=== PATIENT | female | born 1930 | race Caucasian/White ===

== ENCOUNTER → 2016-12-27 | Outpatient (CLI) | payer BC ==
[~2016-12-27] MED LIST: ACET-1256 PO; AMT50 PO; APR25 PO; ASPI81TA28 PO; CHOL100027 PO; CYM20 PO; GLIP10TA9 PO; INSU1INJ SC; LEVO75TA5 PO; LISI-461 PO; LSX20 PO; MULT-190 PO; NRN100 PO; SIMV40TA4 PO; TPRSR25 PO
--- NOTE | 2016-12-27 13:22 | DIAGNOSTIC IMAGING REPORT ---
RIGHT KNEE 4 OR MORE CLINICAL HISTORY: Right knee pain COMPARISON: 03/02/2015 DISCUSSION: The bones are osteopenic. There are osteoarthritic changes present with mild medial joint compartment narrowing. There are dorsal patellar spurs. No acute fractures are evident. Skin chris are visualized in the medial soft tissues. There are vascular calcifications present. IMPRESSION: Osteopenia. Degenerative changes. No acute fractures. Electronically signed by: Varinder Ervin M.D. 12/27/2016 1:20 PM Dictated Date/Time: 12/27/2016 1:18 PM
== END | disposition home or self-care (01) ==
LOC: C.RDSM 10:45
PROVIDERS: ATTEND Family Medicine
DX: M25.569 Pain in unspecified knee (principal); M85.861 Other specified disorders of bone density and structure, right lower leg

== ENCOUNTER 2020-07-20 16:58 | Inpatient (IN) ==
[2020-07-20] MEDS ORDERED: ACETAMINOPHEN 1,000 MG/100 ML VIAL IV STA (17:34)
--- NOTE | 2020-07-20 18:04 | XRay Report ---
XR chest 1V portable HISTORY: SEPSIS COMPARISON: Chest 07/10/2013. FINDINGS: No pneumothorax. The heart is enlarged. There are poststernotomy changes. There is diffuse interstitial and vascular thickening which has progressed in the interval. This is consistent with mi ld pulmonary edema. No pleural effusions. No focal lung consolidations to suggest pneumonia. IMPRESSION: Cardiomegaly with interval progression of the mild interstitial pulmonary edema. ACT 112: Negative or not required by law. Electronically signed by: Julio Pastrana M.D. 07/20/2020 6:02 PM
[2020-07-20 18:15] LABS: Basophils # (auto) 0.02 K/uL (0-0.2); Basophils % (auto) 0.2 %; Eosinophils # (auto) 0.15 K/uL (0-0.5); Eosinophils % (auto) 1.3 %; Hematocrit (blood only) 37.8 % (37-47); Hemoglobin 12.1 g/dL (12.0-16.0); Immature Granulocytes # (auto) 0.02 K/uL (0.00-0.02); Immature Granulocytes % (auto) 0.2 %; Lymphocytes # (auto) 1.55 K/uL (1.2-3.4); Lymphocytes % (auto) 13.5 %; Mean Corpuscular Hemoglobin 30.7 pg (25-34); Mean Corpuscular Volume 95.9 fL (80-100); Mean Platelet Volume 12.4 fL (7.4-10.4); Monocytes # (auto) 1.36 K/uL (0.11-0.59); Monocytes % (auto) 11.9 %; Neutrophils # (auto) 8.36 K/uL (1.4-6.5); Neutrophils % (auto) 72.9 %; Platelet Count 187 K/uL (130-400); RDW Coefficient of Variation 14.3 % (11.5-14.5); RDW Standard Deviation 50.6 fL (36.4-46.3); Red Blood Count 3.94 M/uL (4.2-5.4); White Blood Count 11.46 K/uL (4.8-10.8)
--- NOTE | 2020-07-20 18:16 | Emergency Department Note ---
Impression & Plan Bilateral cellulitis of lower leg, CKD (chronic kidney disease), Elevated erythrocyte sedimentation rate, Elevated C-reactive protein ED Provider Note NAME: EDE KONG AGE: 89 SEX: F ARRIVES VIA: Walk-In INFORMANT: Patient, ED PROVIDER(S): Rex Paredes MD CHIEF COMPLAINT: Cellulitis PLAN: Disposition: Admit MEDICAL DECISION MAKING: The patient is a pleasant 89-year-old woman with a past medical history of diabetes, hypertension, hyperlipidemia, peripheral edema who presents emergency department for evaluation and admission for bilateral lower extremity cellulitis which has evolving over the past month where she reports pain developing in June but noticing redness approximately a week ago that has worsened in seen by orthopedics, Dr. Rubio Chacko today referred to the emergency department for admission. Patient denies any fevers, chills, cough, congestion, nausea, vomiting, diarrhea, urinary symptoms. She does report feeling generally fatigued. She denies chest pain or shortness of breath. On arrival patient is no acute distress, afebrile stable vital signs. On exam the patient has 3+ bilateral lower extremity pitting edema with erythema of the lower legs bilaterally with warmth, tenderness and scattered bullae that are Nikolsky negative. I did review with the patient concern for her medical comorbidities and what is a severe cellulitis of her extremities and recommend admission. She is agreeable with this plan. WBC 11.4, nonspecific. H/H within normal limits. Platelets within normal limits. Chemistry without acidosis. Creatinine 1.5 approximate 2 prior range of values. Lactate 1.2, within normal limits. LFTs unremarkable. ESR and CRP are elevated at 70 and 5, respectively. Procalcitonin 0.06, not elevated. Plain films of bilateral lower legs without evidence of osseous involvement. Ultrasound of bilateral lower extremities negative for DVT. Given the patient's severe lower extremity cellulitis patient was treated with broad-spectrum antibiotics (Zosyn and daptomycin) given her comorbidities. Case was discussed with Dr. Monroe, [facility] hospitalist, who will evaluate the patient for admission. Triage Nursing notes reviewed and agree them. Additional history obtained from Prior medical records reviewed Vital Signs: reviewed and remarkable for no significant abnormalities Differential diagnosis: Cellulitis, abscess, MRSA infection, DVT, necrotizing fasciitis, dermatitis, drug eruption, allergic reaction, as well as other pathologies. ER treatment provided: See below. Diagnostics interpreted by me: ECG: Sinus rhythm, 62 bpm, PACs, right bundle branch block, no overt ST elevation or depression, QTC 444, QRS 130. Cardiac Monitoring: An order for continuous cardiac monitoring was placed and demonstrated NSR, 63 bpm, PACs. Laboratory studies: See below Imaging studies: XR chest 1V portable HISTORY: SEPSIS COMPARISON: Chest 07/10/2013. FINDINGS: No pneumothorax. The heart is enlarged. There are poststernotomy changes. There is diffuse interstitial and vascular thickening which has progressed in the interval. This is consistent with mild pulmonary edema. No pleural effusions. No focal lung consolidations to suggest pneumonia. IMPRESSION: Cardiomegaly with interval progression of the mild interstitial pulmonary edema. - BILATERAL LOWER EXTREMITY VENOUS DOPPLER HISTORY: Bilateral lower extremity pain swelling COMPARISON STUDY: None. FINDINGS: There is normal compressibility, flow, and augmentation within the bilateral lower extremity deep venous systems. IMPRESSION: No DVT within the right or left lower extremity. - XR tibia fibula RT 2V, XR tibia fibula LT 2V CLINICAL HISTORY: Bilateral lower leg pain, swelling, cellulitis, eval osseous involveme COMPARISON STUDY: None. FINDINGS: Diffuse subcutaneous edema seen throughout the bilateral lower legs. There are multiple surgical clips seen within the right lower leg medially. No fracture or dislocation within the bilateral lower legs. No evidence for osteomyelitis or cortical destruction. The bones are osteopenic. IMPRESSION: Diffuse subcutaneous edema within the bilateral lower legs. No underlying bony abnormality. Consultation(s): Case was discussed with Dr. Monroe, [facility] hospitalist, who will evaluate the patient for admission. HPI: The patient is a pleasant 89-year-old woman with a past medical history of diabetes, hypertension, hyperlipidemia, peripheral edema who presents emergency department for evaluation and admission for bilateral lower extremity cellulitis which has evolving over the past month where she reports pain developing in June but noticing redness approximately a week ago that has worsened in severity seen by orthopedics, Dr. Rubio Chacko today referred to the emergency department for admission. Patient denies any fevers, chills, cough, congestion, nausea, vomiting, diarrhea, urinary symptoms. She does report feeling generally fatigued. She denies chest pain or shortness of breath. ROS: See above HPI for pertinent positives & negatives. A total of 10 systems reviewed and were otherwise negative. PAST MEDICAL HISTORY:See Below PAST SURGICAL HISTORY:See Below FAMILY HISTORY:See Below SOCIAL HISTORY:See Below HOME MEDICATIONS:See Below ALLERGIES:See Below VITALS:See Below PHYSICAL EXAMINATION: GENERAL: Awake, alert, fatigued-appearing, in no distress, BMI 49.5. HENT: Normocephalic, atraumatic. Oropharynx unremarkable. EYES: Normal conjunctiva. Sclera non-icteric. NECK: Supple. No nuchal rigidity. FROM. No JVD. RESPIRATORY: Clear to auscultation. CARDIAC: Regular rate, normal rhythm. Extremities warm and well perfused. Pulses equal. ABDOMEN: Soft, non-distended. No tenderness to palpation. No rebound or guarding. No masses. RECTAL: Deferred. MUSCULOSKELETAL: Chest examination reveals no tenderness. The back is symmetrical on inspection without obvious abnormality. There is no CVA te nderness to palpation. No joint edema. LOWER EXTREMITIES: 3+ bilateral lower extremity pitting edema with erythema of the lower legs bilaterally with warmth, tenderness and scattered bullae that are Nikolsky negative. NEURO: Normal sensorium. No sensory or motor deficits noted. SKIN: No rash or jaundice noted. ED COURSE: Critical Care: I have personally spent greater than 35 minutes of critical care time in the direct management of this patient. This includes bedside care, interpretation of diagnostic studies, and testing, discussion with consultants, patient, and family members, and other required patient management activities. This 35 minutes is in excess of all separately billable procedures. Rex Paredes MD Past Med/Surg History Medical History CKD (chronic kidney disease) Hyperlipidemia Hypertension Hypothyroidism (acquired) Mixed conductive and sensorineural hearing loss Type 2 diabetes mellitus Surgical History History of cholecystectomy History of hysterectomy Hx of CABG S/P epidural steroid injection Social History Smoking Status: Never smoker Hx Alcohol Use: Yes Hx Substance Use: No Preferred Language: Welsh Communication Ability: Effective [employer] Required: No Beliefs That Will Affect Care: None Current Living Situation: Spouse Feels Safe at Home: Yes Safety Concerns: Feels Safe At This Time Allergies Allergies Allergy/AdvReac Type Severity Reaction Status Date / Time oxycodone AdvReac Unknown Dizziness/N Verified 09/03/15 10:59 ausea Home Meds Home Medications Medication Instructions Recorded Confirmed aspirin [Aspirin Low Dose] 81 mg PO DAILY 07/20/20 07/20/20 furosemide 20 - 40 mg PO UD PRN 07/20/20 07/20/20 gabapentin 300 mg PO TID 07/20/20 07/20/20 hydralazine 25 mg PO BID 07/20/20 07/20/20 insulin NPH and regular human 0 unit SUBCUT UD 07/20/20 07/20/20 [Humulin 70/30 U-100 Insulin] levothyroxine 75 mcg PO DAILYBB 07/20/20 07/20/20 losartan 50 mg PO DAILY 07/20/20 07/20/20 omeprazole 20 mg PO DAILY 07/20/20 07/20/20 simvastatin 40 mg PO DAILY 07/20/20 07/20/20 vit C,M-Dr-lyijm-lutein-zeaxan 1 tab PO BID 07/20/20 07/20/20 [PreserVision AREDS-2] metoprolol succinate 25 mg See Rx Instructions PO BID tab 07/21/20 tablet,extended release 24 hr Results & Data (ED) Vital Signs Vital Signs - 24 hr 07/20/20 18:45 07/20/20 20:11 07/20/20 20:13 Temperature Temperature Source Pulse Rate [Apical] 80 64 Pulse Rhythm [Apical] Regular Pulse Strength [Apical] Normal Respiratory Rate 16 22 Respiratory Depth Normal Blood Pressure [Left Arm] 168/77 H 106/44 L Blood Pressure Mean [Left Arm] 107 64 Pulse Oximetry 95 87 L 96 Oxygen Delivery Method Room Air Room Air Nasal Cannula Oxygen Flow Rate 3 07/20/20 20:15 Temperature 36.8 C Temperature Source Oral Pulse Rate [Apical] Pulse Rhythm [Apical] Pulse Strength [Apical] Respiratory Rate Respiratory Depth Blood Pressure [Left Arm] Blood Pressure Mean [Left Arm] Pulse Oximetry Oxygen Delivery Method Oxygen Flow Rate Laboratory Data Attestation: I reviewed the patient's lab results. Result diagrams: 07/20/20 18:06 07/21/20 03:24 Lab Results 07/20/20 07/20/20 07/20/20 Range/Units 18:06 18:06 18:06 WBC 11.46 H (4.8-10.8) K/uL RBC 3.94 L (4.2-5.4) M/uL Hgb 12.1 (12.0-16.0) g/dL Hct 37.8 (37-47) % MCV 95.9 (80-100) fL MCH 30.7 (25-34) pg MCHC 32.0 (32-36) g/dL RDW Std Deviation 50.6 H (36.4-46.3) fL RDW Coeff of Linda 14.3 (11.5-14.5) % Plt Count 187 (130-400) K/uL MPV 12.4 H (7.4-10.4) fL Immature Gran % (Auto) 0.2 % Neut % (Auto) 72.9 % Lymph % (Auto) 13.5 % Colbert % (Auto) 11.9 % Eos % (Auto) 1.3 % Baso % (Auto) 0.2 % Neut # (Auto) 8.36 H (1.4-6.5) K/uL Lymph # (Auto) 1.55 (1.2-3.4) K/uL Colbert # (Auto) 1.36 H (0.11-0.59) K/uL Eos # (Auto) 0.15 (0-0.5) K/uL Baso # (Auto) 0.02 (0-0.2) K/uL Immature Gran # (Auto) 0.02 (0.00-0.02) K/uL ESR (0-21) mm/hr PT 11.2 (9.0-12.0) Seconds INR 1.1 (0.9-1.1) APTT 29.4 (21.0-31.0) Seconds PTT Ratio 1.1 Sodium (136-145) mmol/L Potassium (3.5-5.1) mmol/L Chloride (98-107) mmol/L Carbon Dioxide (21-32) mmol/L Anion Gap (3-11) BUN (7-18) mg/dl Creatinine (0.6-1.2) mg/dl Est Cr Clr Drug Dosing Est GFR ( Amer) Est GFR (Non-Af Amer) BUN/Creatinine Ratio (10-20) Glucose (70-99) mg/dl Lactate (0.4-2.0) mmol/L Calcium (8.5-10.1) mg/dl Phosphorus (2.5-4.9) mg/dl Magnesium (1.8-2.4) mg/dl Total Bilirubin (0.2-1) mg/dl AST (15-37) U/L ALT (12-78) U/L Alkaline Phosphatase (45-117) U/L C-Reactive Protein (0-0.29) mg/dl NT-Pro-B Natriuret Pep (0-1800) pg/ml Total Protein (6.4-8.2) gm/dl Albumin (3.4-5.0) gm/dl Globulin (2.5-4.0) gm/dl Albumin/Globulin Ratio (0.9-2) Procalcitonin 0.06 (0-0.5) ng/ml 07/20/20 07/20/20 07/20/20 Range/Units 18:06 18:06 18:06 WBC (4.8-10.8) K/uL RBC (4.2-5.4) M/uL Hgb (12.0-16.0) g/dL Hct (37-47) % MCV (80-100) fL MCH (25-34) pg MCHC (32-36) g/dL RDW Std Deviation (36.4-46.3) fL RDW Coeff of Linda (11.5-14.5) % Plt Count (130-400) K/uL MPV (7.4-10.4) fL Immature Gran % (Auto) % Neut % (Auto) % Lymph % (Auto) % Colbert % (Auto) % Eos % (Auto) % Baso % (Auto) % Neut # (Auto) (1.4-6.5) K/uL Lymph # (Auto) (1.2-3.4) K/uL Colbert # (Auto) (0.11-0.59) K/uL Eos # (Auto) (0-0.5) K/uL Baso # (Auto) (0-0.2) K/uL Immature Gran # (Auto) (0.00-0.02) K/uL ESR 70 H (0-21) mm/hr PT (9.0-12.0) Seconds INR (0.9-1.1) APTT (21.0-31.0) Seconds PTT Ratio Sodium 142 (136-145) mmol/L Potassium 4.8 (3.5-5.1) mmol/L Chloride 110 H (98-107) mmol/L Carbon Dioxide 28 (21-32) mmol/L Anion Gap 4.0 (3-11) BUN 55 H (7-18) mg/dl Creatinine 1.58 H (0.6-1.2) mg/dl Est Cr Clr Drug Dosing Not Reportable Est GFR ( Amer) 33.3 Est GFR (Non-Af Amer) 28.7 BUN/Creatinine Ratio 34.9 H (10-20) Glucose 124 H (70-99) mg/dl Lactate 1.2 (0.4-2.0) mmol/L Calcium 9.8 (8.5-10.1) mg/dl Phosphorus 3.2 (2.5-4.9) mg/dl Magnesium 2.0 (1.8-2.4) mg/dl Total Bilirubin 0.5 (0.2-1) mg/dl AST 11 L (15-37) U/L ALT 13 (12-78) U/L Alkaline Phosphatase 108 (45-117) U/L C-Reactive Protein 5.13 H (0-0.29) mg/dl NT-Pro-B Natriuret Pep 1743 (0-1800) pg/ml Total Protein 7.2 (6.4-8.2) gm/dl Albumin 2.9 L (3.4-5.0) gm/dl Globulin 4.3 H (2.5-4.0) gm/dl Albumin/Globulin Ratio 0.7 L (0.9-2) Procalcitonin (0-0.5) ng/ml Administered Medications Hydrocodone Bitart/Acetaminophen (Hydrocodone/Acetamophen 5/325mg Tab) 1 tab PO Q4H PRN PRN Reason: Moderate Pain Stop: 08/03/20 22:54 Last Admin: 07/21/20 05:59 Dose: 1 tab Documented by: [id number] Aspirin (Aspirin 81 Mg Ectab) 81 mg PO DAILY [facility] Stop: 08/20/20 08:59 Last Admin: 07/21/20 09:46 Dose: 81 mg Documented by: [id number] Gabapentin (Gabapentin 300 Mg Cap) 300 mg PO TID EDMUND Stop: 08/19/20 22:54 Last Admin: 07/21/20 14:28 Dose: 300 mg Documented by: [id number] Admin: 07/21/20 09:47 Dose: 300 mg Documented by: [id number] Admin: 07/21/20 00:01 Dose: 300 mg Documented by: [id number] Heparin Sodium (Porcine) (Heparin Sod 5,000 Unit/0.5 Ml Vial) 7,500 units SQ Q8 EDMUND Stop: 08/19/20 22:54 Last Admin: 07/21/20 14:29 Dose: 7,500 units Documented by: [id number] Cosigned by: [id number] Admin: 07/21/20 06:01 Dose: 7,500 units Documented by: [id number] Cosigned by: [id number] Admin: 07/21/20 00:06 Dose: 7,500 units Documented by: [id number] Cosigned by: [id number] Hydralazine HCl (Hydralazine Hcl 25 Mg Tab) 25 mg PO BID EDMUND Stop: 08/19/20 22:54 Last Admin: 07/21/20 09:47 Dose: 25 mg Documented by: [id number] Admin: 07/21/20 00:01 Dose: 25 mg Documented by: [id number] Furosemide 40 mg/ Syringe 4 mls @ 4 mls/min IV QAM EDMUND Stop: 08/20/20 08:59 Last Admin: 07/21/20 09:46 Dose: 4 mls/min Documented by: [id number] Insulin Aspart (Insulin Aspart 100 Units/Ml 3 Ml Pen) 0 units SC ACHS EDMUND Stop: 08/19/20 22:54 Last Admin: 07/21/20 13:11 Dose: 7 units Documented by: [id number] Cosigned by: [id number] Admin: 07/21/20 09:52 Dose: 7 units Documented by: [id number] Cosigned by: [id number] Admin: 07/21/20 00:07 Dose: 1 units Documented by: [id number] Cosigned by: [id number] Levothyroxine Sodium (Levothyroxine Sodium 75 Mcg Tablet) 75 mcg PO DAILYBB EDMUND Stop: 08/20/20 06:29 Last Admin: 07/21/20 05:56 Dose: 75 mcg Documented by: [id number] Metoprolol Succinate (Metoprolol Succ 25mg Ext Rel Tab) 25 mg PO QAM EDMUND Stop: 10/15/20 08:59 Last Admin: 07/21/20 11:18 Dose: 25 mg Documented by: [id number] Miconazole Nitrate (Miconazole Nitrate Powder 43 Gm) 1 appln EXT BID PRN PRN Reason: Affected Skin Folds Stop: 08/20/20 12:29 Last Admin: 07/21/20 14:28 Dose: 1 appln Documented by: [id number] Multivitamins/Minerals (Cerovite Adv Formula Tab) 1 tab PO BID EDMUND Stop: 08/19/20 23:14 Last Admin: 07/21/20 09:46 Dose: 1 tab Documented by: [id number] Admin: 07/21/20 00:37 Dose: 1 tab Documented by: [id number] Pantoprazole Sodium (Pantoprazole 40 Mg Tab) 40 mg PO DAILY EDMUND Stop: 08/20/20 08:59 Last Admin: 07/21/20 09:46 Dose: 40 mg Documented by: [id number] Discontinued Medications Acetaminophen (Ofirmev) 1,000 mg in 100 mls @ 400 mls/hr IV NOW STA Stop: 07/20/20 17:48 Last Infusion: 07/20/20 19:07 Dose: 0 mls/hr Documented by: [id number] Admin: 07/20/20 18:09 Dose: 400 mls/hr Documented by: [id number] Piperacillin Sod/Tazobactam Sod (Zosyn) 4.5 gm in 120 mls @ 240 mls/hr IV NOW ONE Stop: 07/20/20 20:19 Last Infusion: 07/20/20 20:40 Dose: 0 mls/hr Documented by: [id number] Admin: 07/20/20 20:10 Dose: 240 mls/hr Documented by: [id number] Daptomycin 325 mg/ Syringe 6.5 mls @ 3.25 mls/min IV NOW ONE; Protocol Stop: 07/20/20 20:33 Last Admin: 07/20/20 20:43 Dose: 3.25 mls/min Documented by: [id number] Piperacillin Sod/Tazobactam (Sod 4.5 gm/ Dextrose) 120 mls @ 30 mls/hr IV Q8H EDMUND Stop: 07/28/20 03:59 Last Infusion: 07/21/20 07:16 Dose: 0 mls/hr Documented by: [id number] Admin: 07/21/20 03:25 Dose: 30 mls/hr Documented by: [id number] Furosemide 40 mg/ Syringe 4 mls @ 4 mls/min IV NOW STA Stop: 07/21/20 03:03 Last Admin: 07/21/20 03:25 Dose: 4 mls/min Documented by: [id number] Perflutren Lipid Microsphere (Perflutren Lipid Microsphere (Definity)) 2 ml IV ONCE ONE Stop: 07/21/20 07:57 Last Admin: 07/21/20 07:56 Dose: 2 ml Documented by: [id number] Pneumococcal Polyvalent Vaccine (Pneumococcal Polysaccharides 25 Mcg/0.5 Ml Vial/Syr) 25 mcg IM .ONCE ONE Stop: 07/21/20 00:35 Last Admin: 07/21/20 13:08 Dose: Not Given Documented by: [id number] Blood Pressure Blood Pressure Findings: Normal blood pressure Blood Pressure Disposition: further management by hospitalist Discharge Plan Visit Data Chief Complaint: Foot Injury/Pain Stated Complaint: FOOT PAIN ED Provider: Rex Paredes Discharge Problem: Bilateral cellulitis of lower leg, CKD (chronic kidney disease), Elevated e rythrocyte sedimentation rate, Elevated C-reactive protein Patient Disposition: Admitted As Inpatient Discharge Instructions Interventions: ED Discharge Assessment Last Done: 07/20/20 22:25 Discharge Problem: CKD (chronic kidney disease) Qualifiers: Chronic kidney disease stage: unspecified stage Qualified Code(s): N18.9 - Chronic kidney disease, unspecified
[2020-07-20 18:26] LABS: INR 1.1 (0.9-1.1); Partial Thromboplastin Ratio 1.1; Partial Thromboplastin Time 29.4 Seconds (21.0-31.0); Prothrombin Time 11.2 Seconds (9.0-12.0)
[2020-07-20 18:34] LABS: Alanine Aminotransferase 13 U/L (12-78); Albumin Level 2.9 gm/dl (3.4-5.0); Aspartate Aminotransferase 11 U/L (15-37); BUN Creatinine Ratio 34.9 (10-20); Blood Urea Nitrogen 55 mg/dl (7-18); Calcium 9.8 mg/dl (8.5-10.1); Carbon Dioxide 28 mmol/L (21-32); Chloride 110 mmol/L (98-107); Est GFR (African American) 33.3; Est GFR (Non-African American) 28.7; Glucose 124 mg/dl (70-99); Phosphorus 3.2 mg/dl (2.5-4.9); Potassium 4.8 mmol/L (3.5-5.1); Sodium 142 mmol/L (136-145)
[2020-07-20 18:37] LABS: Albumin Globulin Ratio 0.7 (0.9-2); Alkaline Phosphatase 108 U/L (45-117); Bilirubin,Total 0.5 mg/dl (0.2-1); C Reactive Protein 5.13 mg/dl (0-0.29); Globulin 4.3 gm/dl (2.5-4.0); NT Pro B Type Natriuretic Pept 1743 pg/ml (0-1800); Total Protein 7.2 gm/dl (6.4-8.2)
--- NOTE | 2020-07-20 18:57 | XRay Report ---
XR tibia fibula RT 2V, XR tibia fibula LT 2V CLINICAL HISTORY: Bilateral lower leg pain, swelling, cellulitis, eval osseous involveme COMPARISON STUDY: None. FINDINGS: Diffuse subcutaneous edema seen throughout the bilateral lower legs. There are multiple tyler gical clips seen within the right lower leg medially. No fracture or dislocation within the bilateral lower legs. No evidence for osteomyelitis or cortical destruction. The bones are osteopenic. IMPRESSION: Diffuse subcutaneous edema within the bilateral lower legs. No underlying bony abnormali ty. ACT 112: Negative or not required by law. Electronically signed by: Julio Pastrana M.D. 07/20/2020 6:55 PM
--- NOTE | 2020-07-20 19:46 | Ultrasound Report ---
BILATERAL LOWER EXTREMITY VENOUS DOPPLER HISTORY: Bilateral lower extremity pain swelling COMPARISON STUDY: None. FINDINGS: There is normal compressibility, flow, and augmentation within the bilateral lower extremit y deep venous systems. IMPRESSION: No DVT within the right or left lower extremity. ACT 112: Negative or not required by law. Electronically signed by: Julio Pastrana M.D. 07/20/2020 7:44 PM
[2020-07-20] MEDS ORDERED: PIPERACILLIN/TAZOBACTAM 4.5 GM/120 ML BAG IV ONE (19:50)
[2020-07-20] MEDS ORDERED: PIPERACILL/TAZOBAC CONSULT ACTIVE PRN ×2 (19:50→22:55)
[2020-07-20] MEDS ORDERED: DAPTOMYCIN CONSULT ACTIVE PRN ×2 (20:32→22:55)
[2020-07-20] MEDS ORDERED: DAPTOmycin 325 MG in SYRINGE 0 ML IV ONE (20:32)
--- NOTE | 2020-07-20 21:36 | History & Physical Report ---
Date of Service July 20, 2020 Assessment & Plan (1) Acute exacerbation of CHF (congestive heart failure): The patient will be admitted to telemetry for serial cardiac enzymes, serial EKG's, cardiac rhythm monitoring and a 2-D echocardiogram with Dopplers. Place on Lasix 40 mg IV daily, first dose now. Chest x-ray with pulmonary edema, and lower extremities with severe edema. Present on Admission?: Yes (2) Hypertension: See above Present on Admission?: Yes (3) Bilateral cellulitis of lower leg: Consult wound care. Continue daptomycin IV and Zosyn IV begun in the ED. Patient does have heel calluses bilaterally, right worse than left, and will need to have reassessment of shoe wear and offloading of pressure to prevent progression to heel osteomyelitis. She would also likely benefit from Unna boots in the outpatient setting. Present on Admission?: Yes (4) Hyperlipidemia: Continue simvastatin 40 mg daily Present on Admission?: Yes (5) Type 2 diabetes mellitus: Unknown dosing of Humulin 70/30 insulin. Placed on Accu-Cheks before meals and at bedtime with NovoLog coverage for scale Present on Admission?: Yes (6) CKD (chronic kidney disease): Creatinine 1.58, around her baseline. Hold losartan. Follow serial laboratories while diuresing Present on Admission?: Yes (7) Hypothyroidism (acquired): Continue levothyroxine sodium 75 mcg daily Present on Admission?: Yes History of Present Illness Chief Complaint: The patient is referred to the emergency department by Dr. Manrique with worsening bilateral lower extremity edema and cellulitis. Primary Care Provider: Lizzette Cooper MD The patient is an 89-year-old female with past medical history including hypertension, hyperlipidemia, diabetes mellitus, CKD, hearing loss, GERD, parathyroidectomy and hypothyroidism. She reports having lower extremity swelling for several weeks, and noted redness developing 1 to 2 weeks ago. She was seen by Dr. Manrique, orthopedic surgery, who referred her to the ED for assessment for possible admission. Her main complaint is that of severe pain along the bottom of her feet bilaterally. Allergies Allergy/AdvReac Type Severity Reaction Status Date / Time oxycodone AdvReac Unknown Dizziness/N Verified 09/03/15 10:59 ausea Home Medications Home Medications Medication Instructions Recorded Confirmed Type aspirin [Aspirin Low Dose] 81 mg PO DAILY 07/20/20 07/20/20 History furosemide 20 - 40 mg PO UD PRN 07/20/20 07/20/20 History gabapentin 300 mg PO TID 07/20/20 07/20/20 History hydralazine 25 mg PO BID 07/20/20 07/20/20 History insulin NPH and regular human 0 unit SUBCUT UD 07/20/20 07/20/20 History [Humulin 70/30 U-100 Insulin] levothyroxine 75 mcg PO DAILYBB 07/20/20 07/20/20 History losartan 50 mg PO DAILY 07/20/20 07/20/20 History metoprolol succinate 0 mg PO UD 07/20/20 07/20/20 History omeprazole 20 mg PO DAILY 07/20/20 07/20/20 History simvastatin 40 mg PO DAILY 07/20/20 07/20/20 History vit C,R-Rz-amkuw-lutein-zeaxan 1 tab PO BID 07/20/20 07/20/20 History [PreserVision AREDS-2] Past Med/Surg History Medical History CKD (chronic kidney disease) Hyperlipidemia Hypertension Mixed conductive and sensorineural hearing loss Type 2 diabetes mellitus Surgical History History of cholecystectomy History of hysterectomy Hx of CABG S/P epidural steroid injection Social History Smoking Status: Never smoker Hx Alcohol Use: Yes Hx Substance Use: No Preferred Language: Turkish Communication Ability: Effective Window Framer Required: No Beliefs That Will Affect Care: None Current Living Situation: Spouse Feels Safe at Home: Yes Safety Concerns: Feels Safe At This Time Review of Systems Review of Systems: The patient denies chest pain, palpitations, shortness of breath, dyspnea on exertion, cough, sore throat, fevers, chills, sweats, fatigue, nausea, vomiting, diarrhea , constipation, abdominal pain, pelvic pain, blood in urine or stool, dysuria, urinary frequency or urgency, lightheadedness, dizziness, headache, memory loss, loss of consciousness, imbalance, focal weakness, numbness or tingling in arms, generalized arthralgias or myalgias, back or neck pain, or night sweats. The review of systems is otherwise negative other than for that already noted above, and at least 10 systems have been reviewed. Physical Exam Physical Exam: The patient is awake, alert and oriented 3, normocephalic and atraumatic, lying in bed and in no acute distress. HEENT--PERRL, EOMI, mucous membranes and oropharynx normal. Neck--supple. No JVD. No bruits. Heart--normal S1 and S2. No murmurs, rubs or gallops. Lungs--clear bilaterally, no respiratory distress, no accessory muscle use. Abdomen--normal bowel sounds and soft. Nontender. Nondistended. Morbidly obese Extremities--no cyanosis or clubbing. 3+ bilateral pretibial pitting edema. Dermatologic--multiple vacuoles present, left greater than right, with several draining. Callus on right heel approximately 3 cm in diameter, with surrounding erythema. Callus on left heel proximately 1 cm in diameter with surrounding erythema. Neurologic--cranial nerves II through XII grossly intact. Rheumatologic--limited exam Psychiatric--normal affect. Results & Data Results & Data ([facility]) Vital Signs (Past 12 Hours) Vital Signs Temp Pulse Resp BP BP Pulse Ox 07/20/20 20:15 98.2 F 07/20/20 20:13 96 07/20/20 20:11 64 22 106/44 L 87 L 07/20/20 18:45 80 16 168/77 H 95 07/20/20 16:59 99.1 F 20 170/74 H Laboratory Results Laboratory Results WBC 11.46 K/uL (4.8-10.8) H 07/20/20 18:06 RBC 3.94 M/uL (4.2-5.4) L 07/20/20 18:06 Hgb 12.1 g/dL (12.0-16.0) 07/20/20 18:06 Hct 37.8 % (37-47) 07/20/20 18:06 MCV 95.9 fL (80-100) 07/20/20 18:06 MCH 30.7 pg (25-34) 07/20/20 18:06 MCHC 32.0 g/dL (32-36) 07/20/20 18:06 RDW Std Deviation 50.6 fL (36.4-46.3) H 07/20/20 18:06 RDW Coeff of Linda 14.3 % (11.5-14.5) 07/20/20 18:06 Plt Count 187 K/uL (130-400) 07/20/20 18:06 MPV 12.4 fL (7.4-10.4) H 07/20/20 18:06 Immature Gran % (Auto) 0.2 % 07/20/20 18:06 Neut % (Auto) 72.9 % 07/20/20 18:06 Lymph % (Auto) 13.5 % 07/20/20 18:06 [place]fl[place] % (Auto) 11.9 % 07/20/20 18:06 Eos % (Auto) 1.3 % 07/20/20 18:06 Baso % (Auto) 0.2 % 07/20/20 18:06 Neut # (Auto) 8.36 K/uL (1.4-6.5) H 07/20/20 18:06 Lymph # (Auto) 1.55 K/uL (1.2-3.4) 07/20/20 18:06 Mifflin # (Auto) 1.36 K/uL (0.11-0.59) H 07/20/20 18:06 Eos # (Auto) 0.15 K/uL (0-0.5) 07/20/20 18:06 Baso # (Auto) 0.02 K/uL (0-0.2) 07/20/20 18:06 Immature Gran # (Auto) 0.02 K/uL (0.00-0.02) 07/20/20 18:06 ESR 70 mm/hr (0-21) H 07/20/20 18:06 PT 11.2 Seconds (9.0-12.0) 07/20/20 18:06 INR 1.1 (0.9-1.1) 07/20/20 18:06 APTT 29.4 Seconds (21.0-31.0) 07/20/20 18:06 PTT Ratio 1.1 07/20/20 18:06 Sodium 142 mmol/L (136-145) 07/20/20 18:06 Potassium 4.8 mmol/L (3.5-5.1) 07/20/20 18:06 Chloride 110 mmol/L (98-107) H 07/20/20 18:06 Carbon Dioxide 28 mmol/L (21-32) 07/20/20 18:06 Anion Gap 4.0 (3-11) 07/20/20 18:06 BUN 55 mg/dl (7-18) H 07/20/20 18:06 Creatinine 1.58 mg/dl (0.6-1.2) H 07/20/20 18:06 Est Cr Clr Drug Dosing Not Reportable 07/20/20 18:06 Est GFR ( Amer) 33.3 07/20/20 18:06 Est GFR (Non-Af Amer) 28.7 07/20/20 18:06 BUN/Creatinine Ratio 34.9 (10-20) H 07/20/20 18:06 Glucose 124 mg/dl (70-99) H 07/20/20 18:06 POC Glucose 160 mg/dl (70-99) H 07/20/20 23:59 Lactate 1.2 mmol/L (0.4-2.0) 07/20/20 18:06 Calcium 9.8 mg/dl (8.5-10.1) 07/20/20 18:06 Phosphorus 3.2 mg/dl (2.5-4.9) 07/20/20 18:06 Magnesium 2.0 mg/dl (1.8-2.4) 07/20/20 18:06 Total Bilirubin 0.5 mg/dl (0.2-1) 07/20/20 18:06 AST 11 U/L (15-37) L 07/20/20 18:06 ALT 13 U/L (12-78) 07/20/20 18:06 Alkaline Phosphatase 108 U/L (45-117) 07/20/20 18:06 C-Reactive Protein 5.13 mg/dl (0-0.29) H 07/20/20 18:06 NT-Pro-B Natriuret Pep 1743 pg/ml (0-1800) 07/20/20 18:06 Total Protein 7.2 gm/dl (6.4-8.2) 07/20/20 18:06 Albumin 2.9 gm/dl (3.4-5.0) L 07/20/20 18:06 Globulin 4.3 gm/dl (2.5-4.0) H 07/20/20 18:06 Albumin/Globulin Ratio 0.7 (0.9-2) L 07/20/20 18:06 Procalcitonin 0.06 ng/ml (0-0.5) 07/20/20 18:06 Diagnostic Findings [place], [place] [phone] XRay Report Patient: EDE KONG Date: 07/20/20 MR#: [id number]: [address] Acct ID:[id number]: Date: 1930[facility] Zip: [place] [address] Age: 89Location: ED Sex: FRoom/Bed: Att Phy:Diagnosis: FOOT PAIN Leigh Phy: Lizzette Cooper M.D.Service Date: 07/20/20 Fam Phy:Interpreting Phy: Julio Pastrana MD Admit Phy: Ordering Phy: Rex Paredes M.D. cc: ~ XR tibia fibula RT 2V, XR tibia fibula LT 2V CLINICAL HISTORY: Bilateral lower leg pain, swelling, cellulitis, eval osseous involveme COMPARISON STUDY: None. FINDINGS: Diffuse subcutaneous edema seen throughout the bilateral lower legs. There are multiple surgical clips seen within the right lower leg medially. No fracture or dislocation within the bilateral lower legs. No evidence for osteomyelitis or cortical destruction. The bones are osteopenic. IMPRESSION: Diffuse subcutaneous edema within the bilateral lower legs. No underlying bony abnormality. ACT 112: Negative or not required by law. Electronically signed by: Julio Pastrana M.D. 07/20/2020 6:55 PM Dictated: 07/20/20 1759 Transcribed: 07/20/20 1801 [place], [place] [phone] Ultrasound Report Patient: EDE KONG Date: 07/20/20 MR#: [id number]: [address] Acct ID:[id number]: Date: 1930[facility] Zip: [place] [address] Age: 89Location: ED Sex: FRoom/Bed: Att Phy:Diagnosis: FOOT PAIN Leigh Phy: Lizzette Cooper M.D.Service Date: 07/20/20 [facility] Phy:Interpreting Phy: Julio Pastrana MD Admit Phy: Ordering Phy: Rex Paredes M.D. cc: ~ BILATERAL LOWER EXTREMITY VENOUS DOPPLER HISTORY: Bilateral lower extremity pain swelling COMPARISON STUDY: None. FINDINGS: There is normal compressibility, flow, and augmentation within the bilateral lower extremity deep venous systems. IMPRESSION: No DVT within the right or left lower extremity. ACT 112: Negative or not required by law. Electronically signed by: Julio Pastrana M.D. 07/20/2020 7:44 PM Dictated: 07/20/201943 Transcribed: 07/20/201943 [place], [place] [phone] XRay Report Patient: EDE KONG Date: 07/20/20 MR#: [id number]: [address] Acct ID:[id number]: Date: 1930[facility] Zip: [place] [address] Age: 89Location: ED Sex: FRoom/Bed: Att Phy:Diagnosis: FOOT PAIN Leigh Phy: Lizzette Cooper M.D.Service Date: 07/20/20 [facility] Phy:Interpreting Phy: Julio Pastrana MD Admit Phy: Ordering Phy: Rex Paredes M.D. cc: ~ XR chest 1V portable HISTORY: SEPSIS COMPARISON: Chest 07/10/2013. FINDINGS: No pneumothorax. The heart is enlarged. There are poststernotomy changes. There is diffuse interstitial and vascular thickening which has progressed in the interval. This is consistent with mild pulmonary edema. No pleural effusions. No focal lung consolidations to suggest pneumonia. IMPRESSION: Cardiomegaly with interval progression of the mild interstitial pulmonary edema. ACT 112: Negative or not required by law. Electronically signed by: Julio Pastrana M.D. 07/20/2020 6:02 PM Dictated: 07/20/201800 Transcribed: 07/20/201800 Code Status & VTE Plan Code Status Full code VTE Prophylaxis Plan VTE Prophylaxis will be ordered: Yes PG Care Time/CCT Total # of Minutes Spent Total Time Spent with Patient: Total time spent is greater than 50% in coordination of care (as documented) at patient's floor/unit and/or counseling patient: Coding Level of Care Code 17884 Initial Inpt Care Lvl 3 Diagnoses Acute exacerbation of CHF (congestive heart failure) I50.9 Hypertension I10 Bilateral cellulitis of lower leg L03.116; L03.115 Hyperlipidemia E78.5 Type 2 diabetes mellitus E11.9 CKD (chronic kidney disease) N18.9 Chronic kidney disease stage: unspecified stage Hypothyroidism (acquired) E03.9 (1) CKD (chronic kidney disease) Chronic kidney disease stage: unspecified stage Qualified Code(s): N18.9 - Chronic kidney disease, unspecified
[2020-07-20] MEDS ORDERED: GLUCOSE 40% GEL 15 GM TUBE PO PRN (22:55)
[2020-07-20] MEDS ORDERED: ALUMINUM/MAGNESIUM SUSP 30 ML UDC PO PRN (22:55)
[2020-07-20] MEDS ORDERED: DEXTROSE 50% 50 ML SYRINGE IV PRN (22:55)
[2020-07-20] MEDS ORDERED: GLUCOSE 10 TABS/TUBE PO PRN (22:55)
[2020-07-20] MEDS ORDERED: GLUCAGON FOR INJ 1 MG VIAL SQ PRN (22:55)
[2020-07-20] MEDS ORDERED: ACETAMINOPHEN 325 MG TAB PO PRN (22:55)
[2020-07-20] MEDS ORDERED: MAGNESIUM HYDROXIDE SUSP 30 ML UDC PO PRN (22:55)
[2020-07-20] MEDS ORDERED: ONDANSETRON INJ 2 MG/ML 2 ML VIAL IV PRN (22:55)
[2020-07-20] MEDS ORDERED: CARBOHYDRATES FOR HYPOGLYCEMIA PO PRN (22:55)
[2020-07-21] MEDS: GABAPENTIN 300 MG CAP PO SCH ×4 (00:01→21:20)
[2020-07-21] MEDS: HEPARIN SOD 5,000 UNIT/0.5 ML VIAL SQ SCH ×4 (00:06→21:24)
[2020-07-21] MEDS: INSULIN ASPART 100 UNITS/ML 3 ML PEN SC SCH ×5 (00:07→21:23)
[2020-07-21] MEDS ORDERED: PNEUMOCOCCAL ADMINISTRATION CHARGE ONE (00:34)
[2020-07-21] MEDS ORDERED: PNEUMOCOCCAL POLYSACCHARIDES 25 MCG/0.5 ML VIAL/SYR IM ONE (00:34)
[2020-07-21] MEDS: CEROVITE ADV FORMULA TAB PO SCH ×3 (00:37→21:20)
[2020-07-21] MEDS ORDERED: FUROSEMIDE 40 MG in SYRINGE 0 ML IV STA (03:02)
[2020-07-21] MEDS ORDERED: PIPERACILLIN/TAZOBACTAM 4.5 GM in DEXTROSE 5% 100 ML IV SCH (04:00)
[2020-07-21 04:13] LABS: Appearance Urine Cloudy (Clear); Bacteria Urine Automated 4+ (Negative); Bilirubin Urine Negative (Negative); Blood Urine Negative (Negative); Color Urine Yellow; Epithelial Cell Urine Auto >30 /lpf (0-5); Glucose Urine UA Negative (Negative); Ketones Urine Negative (Negative); Leukocyte Esterase Urine Trace (Negative); Nitrite Urine Negative (Negative); Protein Urine Negative (Negative); RBC Urine Automated 0-4 /hpf (0-4); Specific Gravity Urine 1.015 (1.000-1.030); Urobilinogen Urine Negative (Negative); pH Urine 8.5 (4.5-7.5)
[2020-07-21 04:28] LABS: Albumin Level 2.5 gm/dl (3.4-5.0); BUN Creatinine Ratio 32.8 (10-20); Calcium 9.3 mg/dl (8.5-10.1); Creatinine Clr Calc Pharmacy 30.7 ml/min; Est GFR (African American) 34.1; Est GFR (Non-African American) 29.4; Potassium 4.7 mmol/L (3.5-5.1)
[2020-07-21 04:31] LABS: Triple Phosphate Crystal Urine Present (None Prsent)
[2020-07-21 04:33] LABS: Phosphorus 3.1 mg/dl (2.5-4.9); Troponin I 0.015 ng/ml (0-0.045)
[2020-07-21] MEDS: LEVOTHYROXINE SODIUM 75 MCG TABLET PO SCH (05:56)
[2020-07-21 05:57] LABS: Estimated Average Glucose 97 mg/dl
[2020-07-21] MEDS: HYDROCODONE/ACETAMOPHEN 5/325MG TAB PO PRN (05:59)
[2020-07-21] MEDS ORDERED: PERFLUTREN LIPID MICROSPHERE (DEFINITY) IV ONE (07:56)
[2020-07-21] MEDS ORDERED: SIMVASTATIN 40 MG TAB PO SCH (09:00)
[2020-07-21] MEDS: FUROSEMIDE 40 MG in SYRINGE 0 ML IV SCH (09:46)
[2020-07-21] MEDS: ASPIRIN 81 MG ECTAB PO SCH (09:46)
[2020-07-21] MEDS: PANTOprazole 40 MG TAB PO SCH (09:46)
[2020-07-21] MEDS: METOPROLOL SUCC 25MG EXT REL TAB PO SCH ×2 (11:18→21:20)
--- NOTE | 2020-07-21 11:50 | XCELERA ---
[id number] \\[id number]_[id number]}___[id number]
--- NOTE | 2020-07-21 13:42 | Medical Student Progress Note ---
Date of Service July 21, 2020 Assessment & Plan (1) Venous stasis dermatitis: Pt denies any constitutional symptoms suggestive of cellulitis without the presence of tachycardia, fever, high WBC, and constant, advesive tenderness to lower extremity rash indicates. Pt has a history of CHF and obesity with limited mobility suggests venous stasis dermatitis. Pt will be given lower leg compression to relieve stasis as tolerated. Zosyn will be stopped and pt will be monitored for worsening pain symptoms and constitutional symptoms suggestive of infection until discharge. Present on Admission?: Yes (2) Acute exacerbation of CHF (congestive heart failure): Pt's chest CT scan showed an enlarged heart with pulmonary edema suggestive of an acute exacerbation of CHF. Additionally minor rales were noted on physical exam bilaterally. Overall, the pt hasn't noticed dyspnea except when in the shower. Pt will continue to be monitored for worsening CHF exacerbation symptoms of dyspnea, pedal edema, chest pain. Consider a cardiology consult if pt becomes symptomatic of an acute CHF exacerbation. Admission and Anticipated Discharge Date Admission Date: July 20, 2020 Supervising Attestation I personally examined the patient and verified all lopez points of history and exa m, discussed case, and agree with decision making with Zuleima MACDONALD. feeling ok. feet not hurting too much. denies sob but notes that she normally doesn't wear O2. on directed questioning does not to dyspnea whne she showers - this happens pretty regularly. otherwise denies dyspnea. vitals noted nad heent nc at mmm lungs faint rales best heard base L othewrise lungs clear. b/l LE chronic venous stasis changes nontender no exudate equal b/l acute on chronic HFpEF - new O2 requirement, CXR, exam findings all suggest at least a mild CHF exac - lasix, follow clinically follow Cr venous stasis edema / pain - while she does have a mild CHF flare, appears that her LE edema is far more from chronic venous stasis. does not appear cellulitic at this time - will hold abx and follow closely. mobilization, compression (if she'll allow), education CKD4 - not a lot of baseline creatinine values to follow but appears this is probably in her range. follow w diuresis. morbid obesity w BMI ~49 - likely contributes to venous stasis DVT proph - heparin SQ otherwise as above Subjective Pt is a 89 y/o female with a history of CHF, type 2 diabetes, and CKD that came into to the ED yesterday (07/20/20) for bilateral redness and swelling of the lower legs. Pt has had progressively worsening pain at the bottom of her feet starting from the last two weeks of June. Pain was mild at first but now is so bad that it has interfered with her sleep. On Monday (07/17/20), pt called Dr. Crocker about her lower leg pain which resulted in a prescription for an unknown pain medication which the patient only took half of. The pain did subside from the medication on Monday (07/18/20) but the patient woke up on Monday (07/19/20) and felt more pain during the day. Yesterday (07/20/20), the patient had a visit with orthopedics for her bilateral foot pain. The pt was sent to the ED for fear of bilateral cellulitis. Pt was given Zosyn and given a chest X-ray, tibia/fibular X-ray, lower extremity venous Doppler flow, echocardiogram, and blood and urine culture. Chest X-ray found mild cardiomegaly and diffuse interstitial and vascular thickening suggestive of mild pulmonary edema.Tibia/fibula x-ray and venous Doppler flow was not remarkable. Echocardiogram found borderline concentric left ventricular hypertrophy with normal systolic function (EF = 60- 65%), moderately dilated left atrium, and mild mitral regurgitation. Blood and urine cultures are pending. Pt describes the foot pain as sharp when lying down but dissipates with movement. Pt describes the pain as worse at night but almost non-existent during the day. Pt had no pain on admission. Pt says the pain was a 6/10 at 6 AM today and she was given Tramadol which reduced her pain to a 2/10. Review of Systems Constitutional: Denies fever, chills, night sweats Eyes: Notes macular degeneration of right eye. No acute changes in vision. Ear, Nose, Mouth, Throat: Conductive and sensorineural hearing loss in right ear. Respiratory: Denies shortness of breath today. Notes shortness of breath when taking showers. Cardiovascular: Additional Comments: Denies chest pain, palpitations Gastrointestinal: No constipation or diarrhea, passes stool every other day, no changes in consistency Genitourinary: No pain with urination, no changes in urine color Musculoskeletal: Bilateral foot pain 2/10 today. Integumentary: No recent rashes or skin changes Neurologic: Denies numbness Psychiatric: Denies depression; has good and bad days, denies anxiety Physical Exam Constitutional: In no acute distress Eyes: PERRLA bilaterally. Normal visual fonseca. No nystagmus Respiratory: Minor rales on auscultation of posterior lung fonseca bilaterally Cardiovascular: RRR with no murmurs, clicks, rubs, or gallops. No carotid bruitis. Capillary refill normal Gastrointestinal (Abdomen): normal bowel sounds, soft, nontender, no hepatosplenomegaly Musculoskeletal: Bilateral foot pain localized to the heel. Minor pain with palpation to area of erythema and blistering in the lower legs bilaterally. Skin: Erythematous, dispersed vesicular lesion with an erythematous base located bilaterally at the lower legs that runs circumferentially around the extent of the lower leg. Extends roughly an inch above the medial and lateral malleous and an inch below the tibial tuberosity bilaterally. Well defined borders. No evidence of pus. Clear fluid noted in remaining vesicles/bullae. Some minor erosions noted. Neurologic: Brachioradialis, biceps, triceps, patellar, and Achilles reflexes 1+ bilaterally. Essential tremor in hands bilaterally at rest. Psychiatric: A+Ox3, euthymic affect Lymphatic: 1+ pedal edema Results & Data ([facility]) Vital Signs (Past 12 Hours) Vital Signs Temp Pulse Resp BP Pulse Ox 07/21/20 11:17 61 07/21/20 10:52 212 H 109/60 07/21/20 08:17 36.4 C L 178 H 20 145/51 H 97
[2020-07-21] MEDS: MICONAZOLE NITRATE POWDER 43 GM EXT PRN (14:28)
--- NOTE | 2020-07-21 15:09 | Electrocardiogram Report ---
Test Reason : Blood Pressure : / mmHG Vent. Rate : 062 BPM Atrial Rate : 062 BPM P-R Int : 150 ms QRS Dur : 130 ms QT Int : 438 ms P-R-T Axes : 072 098 052 degrees QTc Int : 444 ms Sinus rhythm with Premature atrial complexes Right bundle branch block Abnormal ECG When compared with ECG of 09-JUL-2013 17:07, Borderline criteria for Inferior infarct are no longer Present Nonspecific T wave abnormality no longer evident in Inferior leads Nonspecific T wave abnormality, worse in Lateral leads Confirmed by Sarath Burns ([id number]) on 07/21/2020 3:08:46 PM Referred By: Rm Manrique Confirmed By:Sarath Burns
--- NOTE | 2020-07-21 15:15 | Electrocardiogram Report ---
Test Reason : Blood Pressure : / mmHG Vent. Rate : 057 BPM Atrial Rate : 057 BPM P-R Int : 152 ms QRS Dur : 132 ms QT Int : 448 ms P-R-T Axes : 091 099 061 degrees QTc Int : 436 ms Sinus bradycardia Right bundle branch block Possible Lateral infarct , age undetermined Abnormal ECG When compared with ECG of 20-JUL-2020 17:57, (unconfirmed) Premature atrial complexes are no longer Present Confirmed by Sarath Burns ([id number]) on 07/21/2020 3:15:07 PM Referred By: Rm Manrique Confirmed By:Sarath Burns
--- NOTE | 2020-07-21 19:13 | Billing Data ---
Date of Service July 21, 2020 Coding Level of Care Code 93585 Subseq Hosp Care Lvl 3
[2020-07-21] MEDS ORDERED: DAPTOmycin 325 MG in SYRINGE 0 ML IV SCH (21:00)
[2020-07-22] MEDS: HYDROCODONE/ACETAMOPHEN 5/325MG TAB PO PRN ×2 (00:44→14:55)
[2020-07-22 05:05] LABS: Basophils # (auto) 0.03 K/uL (0-0.2); Basophils % (auto) 0.4 %; Eosinophils % (auto) 2.6 %; Hematocrit (blood only) 34.7 % (37-47); Hemoglobin 10.3 g/dL (12.0-16.0); Immature Granulocytes # (auto) 0.02 K/uL (0.00-0.02); Immature Granulocytes % (auto) 0.3 %; Lymphocytes # (auto) 2.11 K/uL (1.2-3.4); Lymphocytes % (auto) 27.8 %; Mean Corpuscular Hemoglobin 28.9 pg (25-34); Mean Corpuscular Hgb Conc 29.7 g/dL (32-36); Mean Corpuscular Volume 97.5 fL (80-100); Mean Platelet Volume 12.3 fL (7.4-10.4); Monocytes # (auto) 0.91 K/uL (0.11-0.59); Neutrophils # (auto) 4.31 K/uL (1.4-6.5); Neutrophils % (auto) 56.9 %; Platelet Count 166 K/uL (130-400); RDW Coefficient of Variation 14.1 % (11.5-14.5); RDW Standard Deviation 50.4 fL (36.4-46.3); Red Blood Count 3.56 M/uL (4.2-5.4); White Blood Count 7.58 K/uL (4.8-10.8)
[2020-07-22] MEDS: LEVOTHYROXINE SODIUM 75 MCG TABLET PO SCH (06:09)
[2020-07-22] MEDS: HEPARIN SOD 5,000 UNIT/0.5 ML VIAL SQ SCH ×3 (06:09→20:20)
[2020-07-22 06:11] LABS: BUN Creatinine Ratio 30.1 (10-20); Calcium 9.4 mg/dl (8.5-10.1); Creatinine Clr Calc Pharmacy 29.7 ml/min; Est GFR (African American) 32.8; Est GFR (Non-African American) 28.3; Potassium 4.5 mmol/L (3.5-5.1)
[2020-07-22] MEDS: FUROSEMIDE 40 MG in SYRINGE 0 ML IV SCH (09:20)
[2020-07-22] MEDS: MICONAZOLE NITRATE POWDER 43 GM EXT PRN (09:20)
[2020-07-22] MEDS: ASPIRIN 81 MG ECTAB PO SCH (09:25)
[2020-07-22] MEDS: GABAPENTIN 300 MG CAP PO SCH ×3 (09:25→20:15)
[2020-07-22] MEDS: PANTOprazole 40 MG TAB PO SCH (09:25)
[2020-07-22] MEDS: METOPROLOL SUCC 25MG EXT REL TAB PO SCH ×3 (09:25→20:14)
[2020-07-22] MEDS: CEROVITE ADV FORMULA TAB PO SCH (09:26)
[2020-07-22] MEDS: INSULIN ASPART 100 UNITS/ML 3 ML PEN SC SCH ×4 (09:27→20:25)
[2020-07-22] MEDS ORDERED: PHARMACY GLYCEMIC MGMT CONSULT PRN (12:42)
[2020-07-22] MEDS ORDERED: INSULIN GLARGINE SOLOSTAR 100 UNITS/ML 3 ML PEN SC ONE (13:15)
--- NOTE | 2020-07-22 13:15 | Medical Student Progress Note ---
Date of Service July 22, 2020 Assessment & Plan (1) Venous stasis dermatitis: Pt has tolerated compression stockings and it seems to be improving overall swelling, pain, and dermatitis associated with venous stasis. Continue compression stockings as tolerated and monitor for changes in wound appearance. PT and ambulation will help prevent much of the venous stasis that caused the current venous stasis dermatitis. Present on Admission?: Yes (2) Ambulatory dysfunction: When pt was checked in the afternoon, pt struggled to get out of bed and stand up with the assistance of her walker. Pt's weakness presents a fall risk. Physical therapy was agreed upon and physical therapy will meet with pt tomorrow to get her approval and establish course of treatment. Confirm with pt tomorrow prior to meeting with physical therapy that she will work with physical therapy. Admission and Anticipated Discharge Date Admission Date: July 20, 2020 Supervising Attestation I personally examined the patient and verified all lopez points of history and exam, discussed case, and agree with decision making with Zuleima MACDONALD. R heel hurts. breathing fine. weak. understands need for rehab. upset that we can't do more therapy here - actually in a little bit of disbelief that as a doctor i cannot order her to have more therapy here inpt - discussed current healthcare bureaucracy and limitations on what we are able to make happen - discussed then that rehab or SNF would be appropriate settings to get the therapy she needs. vitals noted nad heent nc at mmm lungs faint rales best heard base L othewrise lungs clear. b/l LE chronic venous stasis changes nontender no exudate equal b/l. R heel sl soft and tender c/w mild pressure lesion no open skin noted though. when getting OOB she struggles slwoly and fairly tremendously and then is eventually able to shakily pull herself to her feet using her walker. this all looked unsteady enough i did not then have her take any steps. acute on chronic HFpEF - now acute has resolved. highly suspect fluid retention (probably Na intake related although have not yet been able to get a viable diet hx from her) and probably the fluid retention would account for CHF/venous stasis both worsening at the same time - but venous stasis causing more problems since it's the main/ongoing/chronic problem venous stasis edema / pain - while she did have a mild CHF flare, appears that her LE edema is far more from chronic venous stasis. does not appear cellulitic at this time - doing well off abx. ongoing education. mobilization (PT, encouraged movement) and compression CKD4 - not a lot of baseline creatinine values to follow but appears this is probably in her range. follow w diuresis. morbid obesity w BMI ~49 - likely contributes significantly to venous stasis DVT proph - heparin SQ dispo - since hypoxia resolved, and ongoing management of venous stasis will be a chronic problem, she is stable for rehab. needs to work wt PT and then get approvals. otherwise as above Subjective Pt is a 89 y/o female with a history of CHF, type 2 diabetes, and CKD that came into to the ED Monday (07/20/20) for bilateral redness and swelling of the lower legs. Pt has had progressively worsening pain at the bottom of her feet starting from the last two weeks of June. Pain was mild at first but now is so bad that it has interfered with her sleep. On Monday (07/17/20), pt called Dr. Crocker about her lower leg pain which resulted in a prescription for an unknown pain medication which the patient only took half of. The pain did subside from the medication on Monday (07/18/20) but the patient woke up on Monday (07/19/20) and felt more pain during the day. Monday (07/20/20), the patient had a visit with orthopedics for her bilateral foot pain. The pt was sent to the ED for fear of bilateral cellulitis. Pt was given Zosyn and given a chest X-ray, tibia/fibular X-ray, lower extremity venous Doppler flow, echocardiogram, and blood and urine culture. Chest X-ray found mild cardiomegaly and diffuse interstitial and vascular thickening suggestive of mild pulmonary edema.Tibia/fibula x-ray and venous Doppler flow was not remarkable. Echocardiogram found borderline concent deng left ventricular hypertrophy with normal systolic function (EF = 60-65%), moderately dilated left atrium, and mild mitral regurgitation. Blood and urine cultures are pending. Pt describes the foot pain as sharp when lying down but dissipates with movement. Pt describes the pain as worse at night but almost non-existent during the day. Pt had no pain on admission. Pt says the pain was a 6/10 at 6 AM yesterday (07/21/20) and she was given Tramadol which reduced her pain to a 2/10. Today Pt is feeling well overall. Pt had a coughing spell for 5-10 minutes after ingesting orange juice this morning but it has since resolved. Pt had compression on her legs yesterday which did not cause increased pain. She states that she feels the swelling and redness in her lower legs have decreased. She st ates that she was given a small amount of pain medication yesterday which seemed to help. She has been tolerating food and drinking water. She states she has no new symptoms and wants to go home. Review of Systems Constitutional: Denies fever, chills Respiratory: Denies SOB, wheezing. Noted some coughing for 5-10 minutes this morning after consuming orange juice. Cardiovascular: Additional Comments: Denies chest pain, palpitations, syncope, lightheadedness Gastrointestinal: Denies abdominal pain, had three bowel movements yesterday that she thinks looks normal. Genitourinary: Able to pass urine yesterday. Denies pain with urination. Denies discoloration. Musculoskeletal: Minimal lower leg pain. Decreased swelling. Integumentary: Denies any new rashes Psychiatric: Euthymic affect Physical Exam Constitutional: WD/WN, vitals as above Eyes: PERRL Respiratory: normal respiratory effort, lungs clear to auscultation Cardiovascular: RRR with no murmur clicks, rubs, murmurs, or gallops. No carotid bruitis. Pedal edema 2+. Gastrointestinal (Abdomen): normal bowel sounds, soft, nontender, no hepatosplenomegaly Musculoskeletal: When pt was checked in the afternoon, pt struggled to get out of bed and stand up with the assistance of her walker. Pt had no heel pain with or without palpation in the morning but noticed some heel pain with and without palpation in the afternoon. Skin: Bilateral lower leg rash has same demarcations from yesterday. Overall bright red discoloration from yesterday has become more of a purple disocloration. Evidence of draining of vesicles/bullae that were present yesterday. Overall edema is still at 2+ bilaterally. Neurologic: patellar DTR's 2+ bilat, sensation intact Psychiatric: A+Ox3, euthymic affect Results & Data ([facility]) Vital Signs (Past 12 Hours) Vital Signs Temp Pulse Resp BP BP Pulse Ox 07/22/20 09:40 58 L 128/44 L 07/22/20 07:33 36.5 C 105 H 16 137/57 L 97
--- NOTE | 2020-07-22 14:40 | Pharmacy Report ---
Glycemic Control Consultation - Date of Service July 22, 2020 - Scope Scope: Glycemic Pharmacist consulted for glycemic control and to write orders per [facility] inpatient glycemic control protocol. - Objective Weight: 122.2 kg Accuchecks BSG (last 24hrs): 07/21/20 07/22/20 07/22/20 20:38 04:51 08:27 Glucose 193 H POC Glucose 236 H 204 H 07/22/20 11:58 Glucose POC Glucose 294 H Laboratory Data (last 24hrs): 07/22/20 04:51 Potassium 4.5 Carbon Dioxide 31 Anion Gap 2.0 L Creatinine 1.60 H Est Cr Clr Drug Dosing 29.7 HbA1c: Hemoglobin A1c 5.0 % (4.5-5.6) 07/21/20 03:24 - Recent Pertinent Medications Outpatient Anti-diabetic Regimen: * Humulin 70/30 - 50 units in AM, takes a dose at 5pm and a dose at HS depending on BSG per patient's . Self adjusts insulin/doses not consistent at these times * A1c = 5.0 % 07/21/20 The patient is currently receiving: * Basal insulin: None * Correctional Insulin: Novolog Correction per scale ACHS Goal Range: Low 110 mg/dL - High 150 mg/dL Correction Factor: 25 mg/dL/unit * Prandial insulin: Per carb ratio of 1 unit per 10 grams CHO consumed Risk Factors for Insulin Resistance: * Diet: yes - Assessment & Plan Assessment & Plan: ASSESSMENT: * 89 year old admitted with possible cellulitis. Initially on antibiotics, but then stopped. Believed non-infectious source. Patient is type 2 diabetic managed on 70/30 insulin at home * Pharmacy consulted for glycemic management. BSGs within the last 24 hours elevated. No basal insulin ordered yesterday. BSG up to 294 mg/dL at time of consult * Spoke with patient's who manages insulin at home. States that he adjusts insulin based upon BSG and does not have any type of formal scale for insulin dose. Typically patient takes 50 units in the morning. States she takes insulin at dinner and HS depending on BSG value, but could not give me examples of doses. Asked him if she takes up to 20 units at these times and he states sometimes more and sometimes less. Reports recently at bedtime BSGs lower so have been holding insulin doses. PLAN FOR INPATIENT GLYCEMIC CONTROL: * Basal insulin * Lantus 30 units x 1 (based upon stress of 2-3 dosing) * Bolus insulin * NovoLog per scale ACHS or Q6hrs while NPO * Goal Range: Low 120mg/dL - High 160 mg/dL * Correction Factor: 20 mg/dL/unit * Nutritional / Prandial insulin per carb ratio of 1 unit per 8 grams CHO consumed * Please note that the plan above was derived based on current level of insulin resistance and hospital stress. These recommendations are appropriate for inpatient admission only. Plan of care upon discharge will need to be reassessed to avoid potential outpatient hypo/hyperglycemia. Thank you.
[2020-07-22] MEDS: ACETAMINOPHEN 500 MG TAB PO SCH (18:09)
[2020-07-22] MEDS ORDERED: HYDROCODONE/ACETAMOPHEN 5/325MG TAB PO PRN (18:19)
--- NOTE | 2020-07-22 19:28 | Billing Data ---
Date of Service July 22, 2020 Coding Level of Care Code 22279 Subseq Hosp Care Lvl 3
[2020-07-23] MEDS: INSULIN ASPART 100 UNITS/ML 3 ML PEN SC SCH ×4 (00:09→12:51)
[2020-07-23] MEDS: HEPARIN SOD 5,000 UNIT/0.5 ML VIAL SQ SCH ×2 (05:54→13:55)
[2020-07-23] MEDS: LEVOTHYROXINE SODIUM 75 MCG TABLET PO SCH (05:54)
[2020-07-23 07:05] LABS: Basophils # (auto) 0.02 K/uL (0-0.2); Basophils % (auto) 0.3 %; Eosinophils # (auto) 0.38 K/uL (0-0.5); Eosinophils % (auto) 5.6 %; Hematocrit (blood only) 35.4 % (37-47); Immature Granulocytes # (auto) 0.01 K/uL (0.00-0.02); Immature Granulocytes % (auto) 0.1 %; Lymphocytes # (auto) 1.97 K/uL (1.2-3.4); Lymphocytes % (auto) 29.1 %; Mean Corpuscular Hemoglobin 29.7 pg (25-34); Mean Corpuscular Hgb Conc 31.1 g/dL (32-36); Mean Corpuscular Volume 95.7 fL (80-100); Mean Platelet Volume 12.4 fL (7.4-10.4); Monocytes # (auto) 0.67 K/uL (0.11-0.59); Monocytes % (auto) 9.9 %; Neutrophils # (auto) 3.72 K/uL (1.4-6.5); Platelet Count 173 K/uL (130-400); RDW Coefficient of Variation 13.7 % (11.5-14.5); RDW Standard Deviation 47.7 fL (36.4-46.3); White Blood Count 6.77 K/uL (4.8-10.8)
[2020-07-23 07:42] LABS: Est GFR (African American) 38.2; Est GFR (Non-African American) 32.9; Potassium 4.3 mmol/L (3.5-5.1)
[2020-07-23 07:43] LABS: BUN Creatinine Ratio 31.6 (10-20); Calcium 9.8 mg/dl (8.5-10.1); Creatinine Clr Calc Pharmacy 33.7 ml/min
[2020-07-23] MEDS ORDERED: INSULIN GLARGINE SOLOSTAR 100 UNITS/ML 3 ML PEN SC SCH (09:00)
[2020-07-23] MEDS: PANTOprazole 40 MG TAB PO SCH (09:52)
[2020-07-23] MEDS: ASPIRIN 81 MG ECTAB PO SCH (09:52)
[2020-07-23] MEDS: GABAPENTIN 300 MG CAP PO SCH ×2 (09:52→13:54)
[2020-07-23] MEDS: ACETAMINOPHEN 500 MG TAB PO SCH (09:53)
[2020-07-23] MEDS: METOPROLOL SUCC 25MG EXT REL TAB PO SCH (10:12)
--- NOTE | 2020-07-23 13:01 | Med Student Discharge Summary ---
Date of Service July 23, 2020 Admission HPI Per Admitting Provider The patient is an 89-year-old female with past medical history including hypertension, hyperlipidemia, diabetes mellitus, CKD, hearing loss, GERD, parathyroidectomy and hypothyroidism. She reports having lower extremity swelling for several weeks, and noted redness developing 1 to 2 weeks ago. She was seen by Dr. Manrique, orthopedic surgery, who referred her to the ED for assessment for possible admission. Her main complaint is that of severe pain along the bottom of her feet bilaterally. Admission Exam (Per Admitting) Constitutional In no acute distress Eyes PERRLA bilaterally. Normal visual fonseca. No nystagmus Respiratory Minor rales on auscultation of posterior lung fonseca bilaterally Cardiovascular RRR with no murmurs, clicks, rubs, or gallops. No carotid bruitis. Capillary refill normal Gastrointestinal (Abdomen) normal bowel sounds, soft, nontender, no hepatosplenomegaly Musculoskeletal Bilateral foot pain localized to the heel. Minor pain with palpation to area of erythema and blistering in the lower legs bilaterally. Skin Erythematous, dispersed vesicular lesion with an erythematous base located bilaterally at the lower legs that runs circumferentially around the extent of the lower leg. Extends roughly an inch above the medial and lateral malleous and an inch below the tibial tuberosity bilaterally. Well defined borders. No evidence of pus. Clear fluid noted in remaining vesicles/bullae. Some minor erosions noted. Neurologic Brachioradialis, biceps, triceps, patellar, and Achilles reflexes 1+ bilaterally. Essential tremor in hands bilaterally at rest. Psychiatric A+Ox3, euthymic affect Lymphatic 1+ pedal edema Discharge Data Consultations PE 07/20/20 19:52 ED Decision to Admit Stat 07/20/20 22:55 Consult Case Management - Discharge Planning Routine 07/22/20 19:23 Consult Case Management - Discharge Planning Routine PE (07/23/20): Eyes: PERRL Neuro: 1+ reflexes bilaterally Cardio: RRR with no murmurs, clicks, rubs, or gallops, no carotid bruits, 2+ pedal edema, Respiratory: Normal breath sounds bilaterally GI: normal bowel sounds, no pain with palpation on all four quadrants Integumentary: same red/purple discoloration with roughly same demarcations. Still some vesicles noted on the erythematous base. Callouss noted on heels bilaterally. Palpation of right heel elicits some pain. Some fluid buildup behind right heel and left heel but more prominent on right heel. Some erythematous inflammation of top of feet bilaterally. Hospital Course (1) Venous stasis dermatitis: Pt has tolerated compression stockings and it seems to be improving overall swelling, pain, and dermatitis associated with venous stasis. Continue compression stockings as tolerated and monitor for changes in wound appearance. PT and ambulation will help prevent much of the venous stasis that caused the current venous stasis dermatitis. (2) Ambulatory dysfunction: Yesterday (07/22/20) when the pt was checked in the afternoon, pt struggled to get out of bed and stand up with the assistance of her walker. Today (07/23/20) pt's weakness is still present. Pt is willing to go to physical therap y. Pt's weakness presents a fall risk. Physical therapy was agreed upon and physical therapy met with pt today to get her approval and establish course of treatment. Pt will be [facility] to [facility]. (3) Acute exacerbation of CHF (congestive heart failure): Pt had symptoms of SOB, a new oxygen requirement, and peripheral edema upon admittance. Pt will limit sodium intake to 2000mg - 2500mg and is instructed to be aware that just because she isn't adding additional salt to the food does not mean the food is low is salt. She is aware and will be more cognizant of low-sodium food choices. (4) Abnormal urinalysis: Pt had a UA that grew Klebsiella that was sensitive to amp/sul, cefazolin, cefepime, cefotaxime, cefoxitin, ceftriaxone, cefuroxime, ciprofloxacin, ertapenem, gentamicin, impipenem, levofloxacin, tobramycin, TMP/SMX, and piperacillin/tazobactam. Despite positive UA results pt has no fever, chills, pain or discomfort with urination. Pt will be discharged with no antibiotics as symptoms of UTI are not present. Discharge Plan Discharge Items Patient Disposition: Transfer Inpatient Rehab Fac Reason For Visit: B/L LE CELLULITIS Discharge Diagnosis: venous stasis ulcers Activity: Per Instructions section Non-emergency contact: Primary Care Provider Call non-emergency contact if: you have any medication questions Follow-up/Referrals: Lizzette Cooper MD [Primary Care Provider] - Diet: Carb Consistent or DM2 Addtl Attending Provider Instructions: Facility instructions Venous stasis dermatitis: - Pt has tolerated compression stockings and it seems to be improving overall swelling, pain, and dermatitis associated with venous stasis. - Continue compression stockings as tolerated and monitor for changes in wound appearance. PT and ambulation will help prevent much of the venous stasis that caused the current venous stasis dermatitis. Ambulatory dysfunction: - When pt was checked in the afternoon, pt struggled to get out of bed and stand up with the assistance of her walker. - PT will be important to help you improve symptoms prior to discharge. Heart failure: - We initially treated you with IV Lasix for a increased shortness of breath and hypoxia requiring oxygen. - She improved rapidly and we did not give her Lasix for the 2 days prior to discharge - She can continue to Right heel pain - ensure pressure is off of right heal, due to concern for early pressure ulcer formation mid upper back lesion - lesion on upper mid back with dark color, large size and irregular border - outpatient follow up with dermatology Pt. Instructions Leg redness Your veins are not working as well, likely related to decreased movement. As you continue to move and are more active along with using compression we should see improvement in your legs Weakness You were noted to be weaker during your hospitalization. The therapist gave their recommendations to have you go to a facility to work on rehab prior to home. Sodium Increased sodium in your diet likely contributed to you needing oxygen and having swelling of your legs. It will be important to eat a low sodium diet, with the goal of less than 2,000 mg of sodium. Looking at your food and check the sodium content to ensure you are not taking in too much sodium will be important. Pending Studies at Discharge: No Stand-Alone Forms: [facility] CHF Dc Instructions, [facility] Skilled Items Patient informed of condition?: Yes DNR: No Discharge Level of Care: Skilled Communicable Disease: No Discharge Prognosis: Stable Lines: Peripheral IV Urinary Catheter: No Medications and DC Order Prescriptions: Continued metoprolol succinate 25 mg tablet extended release 24 hr See Rx Instructions PO BID RF: 0 losartan 50 mg tablet 50 mg PO DAILY RF: 0 Humulin 70/30 U-100 Insulin 100 unit/mL (70-30) suspension 0 unit SUBCUT UD RF: 0 hydralazine 25 mg tablet 25 mg PO BID RF: 0 aspirin [Aspirin Low Dose] 81 mg Tablet,Delayed Release (Dr/Ec) 81 mg PO DAILY RF: 0 simvastatin 40 mg tablet 40 mg PO DAILY RF: 0 levothyroxine 75 mcg tablet 75 mcg PO DAILYBB RF: 0 gabapentin 300 mg capsule 300 mg PO TID RF: 0 omeprazole 20 mg capsule,delayed release(DR/EC) 20 mg PO DAILY RF: 0 furosemide 20 mg tablet 20 - 40 mg PO UD PRN (Reason: Edema) RF: 0 PreserVision AREDS-2 [id number] Capsule 1 tab PO BID RF: 0 Discharge Orders: Discharge Order (Routine); Ordered 07/23/20 Ordered By: Jeff Minor/Other Patient Handouts: Heart Failure Dc Admission Data Admit Date/Time: 07/20/20 20:54 Attending Provider: Harpreet Meza Admit Provider: John Monroe Primary Care Provider: Lizzette Cooper Other Providers: John Monroe ; [facility] Other Interventions: Discharge Summary Assessment (RN) Last Done: 07/23/20 14:23 Supervising Attestation I personally examined the patient and verified all lopez points of history and exam, discussed case, and agree with decision making with Zuleima MACDONALD. R heel hurts. otherwise feels ok. ready for rehab vitals noted nad heent nc at mmm breathing unlabored no accessory muscles good effort. R heel sl soft and tender c/w mild pressure lesion no open skin noted though. LE vneous stasis changes otherwise acute on chronic HFpEF - now acute has resolved. highly suspect fluid retention (probably Na intake related although have not yet been able to get a viable diet hx from her) and probably the fluid retention would account for CHF/venous stasis both worsening at the same time - but venous stasis causing more problems since it's the main/ongoing/chronic problem. educated on Na restriction and importance. venous stasis edema / pain - while she did have a mild CHF flare, appears that her LE edema is far more from chronic venous stasis. does not appear cellulitic at this time - doing well off abx. ongoing education (and Na restriction as above). mobilization (PT, encouraged movement) and compression CKD4 - not a lot of baseline creatinine values to follow but appears this is probably in her range. follow periodically morbid obesity w BMI ~49 - likely contributes significantly to venous stasis DVT proph - heparin SQ dispo -stable for rehab otherwise as above <30 mins
== END 2020-07-23 14:58 | DRG 291 ==
LOC: ED 16:58 → 3N 20:54 → SUATTDRO 20:54 → 3N 22:25